=== PATIENT | male | born 1945 | race African-American/Black ===

== ENCOUNTER 2018-11-05 08:06 | Day surgery (SDC) | payer OTHER ==
[2018-11-04 16:38] VITALS: BMI 23.8
--- NOTE | 2018-11-05 09:44 | HP ---
[facility]ellite [facility] - Chief Complaint History Source: Patient - Past Medical History Allergies/Adverse Reactions: Allergies Allergy/AdvReac Type Severity Reaction Status Date / Time No Known Allergies Allergy Verified 11/04/18 16:38 - Current Medications Current Medications: Home Medications Medication Instructions Recorded Tamsulosin HCl [Flomax] 0.4 mg PO HS 11/04/18 Satellite Physical Exam - Physical Examination Vital Signs: Vital Signs Period Temp Pulse Resp BP Sys/Mata Pulse Ox Last 24 Hr 97.8 F-97.8 F 69-69 18-18 147-147/89-89 98 ENT: Other (Large ovoid , smooth mass on the right sidecofbthe neck , extending beyond the midline towards the left. Another palpable nodule on the left of the midline) Satellite Impression/Plan - Impression/Plan Impression: Ultrasound and X-ray : Large > than 6 cm. conplex nodule in right lobe of thyroid with tracheal deviation , and 2 vother nodules in left lobe of thyroid galnd. Histology is benign. Plan : Subtotal thyroidectomy , possible total thyroidectomy. Procedure was explained to the patient , with risks , benefits and complications, including , bleeding , recurrent laryngreal nerve injury , hoareseness, hypocalcemia, seroma etc. All questions answered. Operative Procedure: Thyroidectomy , subtotal/ total. Date to be Performed: 11/05/18
[2018-11-05] MEDS ORDERED: MIDAZOLAM HCL 2 MG/2 ML SINGLE DOSE VIAL ONE (10:14)
[2018-11-05] MEDS ORDERED: PROPOFOL 20 ML ONE (10:14)
[2018-11-05] MEDS ORDERED: ePHEDrine SULFATE 50 MG/1 ML AMPULE ONE (12:05)
--- NOTE | 2018-11-05 13:50 | OP ---
Operative Note - Note: Operative Date: 11/05/18 Pre-Operative Diagnosis: Multinodular thyroid goiter , with tacheal compression, . with mediastinal extension. Operation: Subtotal thyroidectomy ( right total lobectomy, isthmusectomy , left partial lobectomy, removal of lower pole and body of the left lobe of the thyroid gland). Removal of mediastinal component cervical approach,. Use of Nervana nerve monitor,. Flexible laryngoscopy. Findings: Large goiter replacing the whole right lobe of thyroid , extending to the superior mediastinum , and wrapped around the larynx and trachea, with tracheal deviation to the left, and multiple nodules in the inferior pole and body of the left lobe of the thyroid gland. Recurrent laryngeal nerves , intact and functioning , both vocal cords mobile , on flexible layngoscopy , at the end of the case. Nervana nerve monitor used. Post-Operative Diagnosis: Same as Pre-op Surgeon: Keaton Zuniga Rivet Heater Gas: Myra Bocanegra Anesthesia: General Specimens Removed: Subtotal thyroid ,. Right lobe , isthmus , and left lower pole and body . Estimated Blood Loss (mls): 20 Operative Report Dictated: Yes
[2018-11-05] MEDS ORDERED: ONDANSETRON 4 MG/2 ML VIAL IVPUSH PRN (13:57)
[2018-11-05] MEDS ORDERED: LIDOCAINE HCL 2% (20ML MULTI-DOSE VIAL) NR ONE (14:00)
[2018-11-05] MEDS ORDERED: LIDOCAINE HCL 4% PRESERVE-FREE 5 ML AMP ONE (14:00)
[2018-11-05] MEDS ORDERED: LIDOCAINE HCL 2% 100 MG/5 ML DISP.SYRIN ONE (14:00)
[2018-11-05] MEDS ORDERED: ACETAMINOPHEN 500 MG TABLET (FP) PO PRN (14:08)
[2018-11-05] MEDS ORDERED: ACETAMINOPHEN 325 MG TABLET (FP) PO PRN (14:10)
--- NOTE | 2018-11-05 14:43 | SURG ---
Surgery Maintenance Craftsman Note Maintenance Craftsman: Myra Bocanegra PA-C Date of Service: 11/05/18 Diagnosis: Multinodular thyroid goiter , with tacheal compression,. with mediastinal extension. Procedure: Subtotal thyroidectomy ( right total lobectomy, isthmusectomy , left partial lobectomy, removal of lower pole and body of the left lobe of the thyroid gland) . Removal of mediastinal component cervical approach,. Use of Nervana nerve monitor,. Flexible laryngoscopy. I was present for the entirety of the operative procedure. For further detail, please refer to operative report. Visit type - Case Type Case Type: Scheduled - Emergency Emergency Visit: No - New patient This patient is new to me today: Yes Date on this admission: 11/05/18
[2018-11-05] MEDS: LACTATED RINGERS SOLUTION 1,000 ML IV SCH (16:50)
--- NOTE | 2018-11-05 17:06 | OP ---
DATE OF OPERATION: 11/05/2018 PREOPERATIVE DIAGNOSIS: Large multinodular thyroid goiter with extension to the superior mediastinum with tracheal compression. POSTOPERATIVE DIAGNOSIS: Large multinodular thyroid goiter predominantly in the right lobe of the thyroid, larger than 6-7 cm in diameter, extending down to the superior mediastinum and wrapped around the larynx and the trachea, as well as nodules in the left lobe of the thyroid in the inferior pole and the body of the left lobe of the thyroid gland. OPERATIVE PROCEDURE: 1. Subtotal thyroidectomy (right total lobectomy, isthmusectomy, and left partial lobectomy, i.e., removal of lower pole and body of the left lobe of the thyroid gland). Removal of mediastinal component through cervical approach. 2. Use of Nerveana nerve monitor and flexible laryngoscopy. OPERATIVE FINDINGS: Large goiter replacing the whole right lobe of the thyroid gland, extending down to the superior mediastinum and wrapped around the larynx and the trachea, tracheal deviation to the left, and multiple nodules in the inferior pole and body of the left lobe of the thyroid gland. Both recurrent laryngeal nerves intact and functioning, and both vocal cords were found mobile on flexible laryngoscopy at the completion of the case. Nerveana nerve monitor used. OPERATIVE DESCRIPTION: This 73-year-old man had a large nodule greater than 6.5 cm in diameter in the right lobe of the thyroid gland, extending down to the mediastinum and compressing the trachea. In addition, he had multiple nodules in the left lobe of the thyroid gland. The nodule in the right lobe of the thyroid gland and the inferior pole of the left lobe of the thyroid gland were biopsied, and the results were benign. Patient had progressive difficulty in breathing. He was scheduled to be operated at [facility] as well as [facility] ; however, just prior to surgery, he was sent home as the hospital did not accept his insurance plan. He was brought to [facility] for the operative procedure. The procedure was explained to him, and the risks, benefits, and complications. Consent was obtained. Patient was brought to the operating room. The Nerveana nerve monitoring device was used with appropriate endotracheal tube. The neck was positioned in extension, painted and draped. Timeout was called. Horizontal skin incision was made 1 fingerbreadth above the clavicle through one sternocleidomastoid muscle to another. The incision was deepened into the skin, subcutaneous tissue, and platysma muscle. The superior and inferior skin flaps were then raised between the platysma and the deep cervical fascia, superior lip of the hyoid bone inferior, anterior to and below the clavicle on both sides. The lateral flap was also then raised, releasing the sternocleidomastoid muscle from the flap. The strap muscles were then divided in the midline from the hyoid bone down to the suprasternal notch. Hemostasis was maintained as the procedure progressed. The thyroid gland was diffusely enlarged. The right lobe of the thyroid gland was then from the strap muscles circumferentially and delivered into the wound. This was wrapped around the larynx, going all the way to the prevertebral space on the right side , inferiorly extending below the clavicle into the superior mediastinum. Care was taken to avoid any bleeding, and the gland was completely mobilized and brought externally into the wound. Similarly, the left lobe of the thyroid gland was also freed and brought into the wound. When this was done, the right lobe of the thyroid gland was then mobilized. The superior thyroid vessels were divided as close to the gland as possible between hemoclips, 3-0 silk ligatures, and the LigaSure. Inferior thyroid vessels were also divided as close to the gland as possible. The superior and inferior parathyroid glands were identified and preserved with its blood supply intact and the color was maintained intact throughout the procedure. When this was done, the middle thyroid vein was divided as close to the gland as possible. The right recurrent laryngeal nerve was identified and preserved all the way to its insertion under the cricothyroid muscle. The nerve was stimulated during the procedure, and there was appropriate response to stimulation of the nerve, with an audible appropriate response with the Nerveana nerve monitoring device. The signal was maintained even after the completion of the procedure before closure of the wound. The gland was then mobilized medially towards the left across the pretracheal fascial plane. The Cast's ligament was divided between clips and 3-0 silk ligatures. The thyroid isthmus was then freed and carried over towards the left , visualizing the tracheal rings. In the left lobe of the thyroid gland, the superior pole of the gland appeared normal without any nodules. However, there was a nodule in the inferior pole as well as the body of the left lobe of the thyroid gland. It was therefore decided to do a subtotal thyroidectomy on the left lobe of the thyroid gland. The inferior thyroid vessels were divided as close to the gland as possible. The inferior parathyroid gland was left intact and preserved throughout the procedure. The gland was then mobilized medially. The left recurrent laryngeal nerve was identified and followed all the way to its insertion in the cricothyroid muscle and left intact, with appropriate response to stimulation of the nerve using the Nerveana nerve monitoring device. At the junction of the upper pole and the body of the right lobe of the thyroid gland, the gland was divided using Deondre clamps. The Cast's ligament on the left side was also divided between clips and LigaSure. After division of the body from the upper pole of the left lobe of the thyroid gland, the specimen consisting of whole right lobe of the thyroid gland along with the isthmus in continuity, as well as the left lobe containing the body and the inferior pole as one entity was sent to pathology. The upper pole of the left lobe of the thyroid gland after division was suture ligated with 3-0 Vicryl suture in a running continuous fashion, brought back towards the first suture again in a locking manner, thus maintaining hemostasis. Both the recurrent laryngeal nerves were intact at the completion of the procedure, with appropriate response to stimulation of the nerve, thus confirming the physiology of the nerve. All parathyroids were left intact. Hemostasis was satisfactory at the completion of the procedure. No. 10 hollow drain was placed into the wound and brought out through a stab wound on the right side of the neck. The wound was irrigated. Hemostasis was satisfactory. The frozen second was consistent with multinodular thyroid goiter. Strap muscles approximated with interrupted [id number] 3-0 Vicryl sutures. The platysma was approximated with inverted interrupted 3-0 Vicryl sutures. The subcutaneous fat was approximated using buried interrupted 3-0 Vicryl sutures and skin approximated with continuous 4-0 Monocryl sutures in a running subcuticular fashion. The drain was anchored to the skin with a pursestring suture of 2-0 Prolene. Estimated blood loss was between 25 and 20 mL. Sponge count and instrument count was correct at the completion of the procedure. The patient was then extubated and a direct laryngoscopy was performed with a flexible laryngoscope. Both true vocal cords were found to be mobile and intact with closure of the larynx appropriately at the completion of the procedure. JA LONDON M.D. [id number]
[2018-11-05] MEDS: oxyCODONE HCL 5 MG TABLET PO PRN (21:41)
[2018-11-06] MEDS: oxyCODONE HCL 5 MG TABLET PO PRN (09:21)
--- NOTE | 2018-11-06 12:10 | PN ---
Progress Note (short form) - Note Progress Note: Anesthesiologist post op note POD#1, S/P subtotal thyroidectomy under GA. VSS. No apparent post anesthesia complications.
--- NOTE | 2018-11-06 13:27 | PN ---
Progress Note, Physician - Current Medication List Current Medications: Active Medications Acetaminophen (Tylenol -) 500 mg PO Q6H PRN PRN Reason: PAIN LEVEL 1-5 Last Admin: 11/06/18 09:26 Dose: 500 mg Acetaminophen (Tylenol -) 325 mg PO Q6H PRN PRN Reason: PAIN SCALE 6-10 Lactated Ringer's (Lactated Ringers Solution) 1,000 mls @ 75 mls/hr IV ASDIR OSVALDO Last Admin: 11/05/18 16:50 Dose: 0 mls Ondansetron HCl (Zofran Injection) 4 mg IVPUSH Q6H PRN PRN Reason: NAUSEA AND/OR VOMITING Oxycodone HCl (Roxicodone -) 5 mg PO Q6H PRN PRN Reason: PAIN LEVEL 6-10 Last Admin: 11/06/18 09:21 Dose: 5 mg - Objective Vital Signs: Vital Signs Temperature 99.6 F 11/06/18 09:59 Pulse Rate 93 H 11/06/18 09:59 Respiratory Rate 20 11/06/18 09:59 Blood Pressure 134/74 11/06/18 09:59 O2 Sat by Pulse Oximetry (%) 100 11/05/18 17:56 Assessment/Plan Surgery Afebrile. Drain removed. Voice is normal. Skin flaps flat. Drain is removed. Will discharge home. Instructions given to watch for seroma, neck swelling. Follow up in my office.
[2018-11-06] MEDS: LACTATED RINGERS SOLUTION 1,000 ML IV SCH (14:44)
[2018-11-06 15:11] VITALS: BP 145/80; PULSE 88; TEMP 99
--- NOTE | 2018-11-10 10:23 | PATH ---
Surgical Pathology Report Patient Name: SEEMA HUERTA [facility]. Rec. #: [id number] /Age/Gender: 1945 (Age: 73) / M Account: [id number] Location: AMBULATORY SURG Taken: 11/05/2018 Received: 11/05/2018 Reported: 11/10/2018 Physicians: Sander Zuniga M.D. Specimen(s) Received THYROID RIGHT LOBE, ISTHMUS, LEFT LOWER POLE Clinical History Multinodular thyroid goiter Final Diagnosis RIGHT LOBE, ISTHMUS, AND LEFT LOWER POLE OF THYROID, SUBTOTAL THYROIDECTOMY: THYROID TISSUE WITH MULTINODULAR GOITER. Electronically Signed Vinny Alberto M.D. Gross Description Specimen received fresh, labeled "right thyroid, isthmus, and left lower pole", consists of a thyroid tissue weighing 217grams. The right lobe measures 10.0 x 4.0 x 3.1cm. The portion of left lobe measures 5.0 x 3.5 x 0.5cm. The right lobe is inked green and the left lobe is inked blue. Serial sections revealed a circumscribed nodule with heterogeneous cut surface with focal hemorrhage and calcification measuring 8 x 8 x 4cm, located in the right lobe. Multiple smaller nodules ranging from 0.4 to 0.9cm in greatest dimension are noted in the left lobe. The rest of the thyroid tissue including isthmus appears to be unremarkable. Clinic Assistant sections are submitted in 16 cassettes. 1- 11: Right lobe of thyroid with nodule, #7 briefly decalcified; 12: Isthmus. 13-16: Left thyroid.
== END 2018-11-06 15:14 | disposition home or self-care (01) ==
LOC: JASU-SURG 08:06 → JASUSAT 08:06 → J7W 17:03 → J8W 17:28 → JASUSAT 11-06 15:14
PROVIDERS: ATTEND Specialist
PROC: 0GBG0ZZ Excision of Left Thyroid Gland Lobe, Open Approach (ICD-10-PCS; 2018-11-05)
PROC: 0GBJ0ZZ Excision of Thyroid Gland Isthmus, Open Approach (ICD-10-PCS; 2018-11-05)
PROC: 0GTH0ZZ Resection of Right Thyroid Gland Lobe, Open Approach (ICD-10-PCS; principal; 2018-11-05 10:30)
DX: E04.2 Nontoxic multinodular goiter (principal); J39.8 Other specified diseases of upper respiratory tract; E11.9 Type 2 diabetes mellitus without complications
CPT/HCPCS: 36415; 82310; 86850; 86900; 86901; 88307-TC; 94760